=== PATIENT | male | born 1990 ===

== ENCOUNTER 2017-06-25 23:24 | Emergency (ER) | payer MEDICAID ==
[~2017-06-25] VITALS: Ht 175.3 cm; Wt 77.1 kg
[2017-06-25 23:30] VITALS: BP 114/74
--- NOTE | 2017-06-25 23:35 | Emergency Room Report ---
History of Present Illness General Chief Complaint: Behavioral Complaint Source: Patient Present Illness HPI Is a 26-year-old male with a psych history. He has been a psychiatric hospital about a month ago. He presents with chief complaint of suicidal and paranoia. Denies any drug use. He told someone on the street that he is suicidal and feels somewhat is out to get him. That person call 911. Now he denies suicidal thoughts or homicidal thought. examining officer place him on a 5150 hold. Patient denies any drug use. Said he was drinking tonight. Allergies: Coded Allergies: No Known Allergies (Unverified , 06/25/17) Patient History Past Medical History: see triage record, old chart reviewed, bipolar Past Surgical History: other Family History: none Social History: ETOH Immunizations: other Reviewed Nursing Documentation: PMH: Agreed, PSxH: Agreed Review of Systems ENT: Denies: sore throat Cardiovascular: Denies: chest pain, palpitations Gastrointestinal/Abdominal: Denies: nausea, vomiting, diarrhea Musculoskeletal: Denies: back problems Skin: Denies: rash Psychiatric: Reports: prior history, suicidal/homicidal ideations Neurological: Denies: MORTON, seizures All Other Systems: negative except mentioned in HPI Physical Exam Vital Signs Date Time Temp Pulse Resp B/P (MAP) Pulse Ox O2 Delivery O2 Flow Rate FiO2 06/25/17 23:13 77 16 110/74 vitals normal Sp02 EP Interpretation: reviewed, normal General Appearance: alert/responsive, no apparent distress, non-toxic Head: normocephalic, atraumatic Eyes: PERRL, EOMI ENT: oropharynx normal Neck: supple/symm/no masses Respiratory: effort normal, no rhonchi, no wheezing Cardiovascular: no murmur, gallop, rub Gastrointestinal: non-tender, no mass, non-distended, no rebound/guarding, normal bowel sounds Musculoskeletal: gait & station normal Neurologic: oriented x3, sensory intact, motor strength/tone normal Skin: no rash, normal palpation Medical Decision Making Diagnostic Impression: Primary Impression: Suicidal ideations Additional Impressions: Substance abuse Psychosis Qualified Codes: F29 - Unspecified psychosis not due to a substance or known physiological condition ER Course Patient presents with paranoia and psychosis with suicidal thoughts. Initially he denies any drug abuse but later admits to taking Ativan for sleep and also methamphetamine but nothing recently. He keep asking for Ativan here. I politely declined. he is on a 5150. He is medically clear for psychiatric evaluation and transfer. Lab Results Impression labs unremarkable Last Vital Signs Date Time Temp Pulse Resp B/P (MAP) Pulse Ox O2 Delivery O2 Flow Rate FiO2 06/25/17 23:13 77 16 110/74 Status: improved Disposition: XFER TO PSYCH HOSP/UNIT Condition: Stable ROSALINDA PAT M.D. Jun 25, 2017 23:35
[2017-06-26 00:26] LABS: BASOPHILS % (AUTO) 0.9 % (0.0-2.0); EOSINOPHILS % (AUTO) 2.9 % (0.0-3.0); LYMPHOCYTES % (AUTO) 18.1 % (20.0-45.0); MEAN CORPUSCULAR HEMOGLOBIN 30.9 PG (27.0-31.0); MEAN CORPUSCULAR HGB CONC 35.9 G/DL (32.0-36.0); MEAN CORPUSCULAR VOLUME 86 FL (80-99); MEAN PLATELET VOLUME 7.7 FL (6.5-10.1); MONOCYTES % (AUTO) 6.4 % (1.0-10.0); NEUTROPHILS % (AUTO) 71.8 % (45.0-75.0); PLATELET COUNT 312 K/UL (150-450); RED BLOOD COUNT 4.71 M/UL (4.70-6.10); RED CELL DISTRIBUTION WIDTH 10.6 % (11.6-14.8); WHITE BLOOD COUNT 12.8 K/UL (4.8-10.8)
[2017-06-26 00:40] LABS: ANION GAP 8 mmol/L (5-15); CALCIUM 8.7 MG/DL (8.5-10.1); CARBON DIOXIDE 27 MMOL/L (21-32); CHLORIDE 107 MMOL/L (98-107); CREATININE 1.2 MG/DL (0.55-1.30); GLOMERULAR FILTRATION RATE > 60 mL/min (>60); POTASSIUM 3.8 MMOL/L (3.5-5.1); SODIUM 142 MMOL/L (136-145)
[2017-06-26 00:44] LABS: ALANINE AMINOTRANSFERASE 22 U/L (12-78); ALBUMIN/GLOBULIN RATIO 1.1 (1.0-2.7); ASPARTATE AMINO TRANSFERASE 25 U/L (15-37); TOTAL PROTEIN 7.3 G/DL (6.4-8.2)
[2017-06-26 00:46] LABS: ACETAMINOPHEN < 2 MCG/ML (10-30)
[2017-06-26 00:47] LABS: ALCOHOL < 3 mg/dL
[2017-06-26 01:30] VITALS: BP 112/67
[2017-06-26] MEDS ORDERED: DiphenhydrAMINE 50mg/ml Inj IVP ONE (03:15)
[2017-06-26 03:30] VITALS: BP 116/71
[2017-06-26 05:30] VITALS: BP 112/68
[2017-06-26] MEDS ORDERED: Haloperidol Decanoate 50mg Inj IM ONE (14:15)
[2017-06-26 14:26] LABS: APPEARANCE,URINE CLOUDY; KETONES,URINE NEGATIVE (NEGATIVE); LEUKOCYTE ESTERASE ,URINE 1+ (NEGATIVE); NITRITE,URINE NEGATIVE (NEGATIVE); PH,URINE 7 (4.5-8.0); PROTEIN,URINE NEGATIVE (NEGATIVE); UROBILINOGEN,URINE 1 MG/DL (0.0-1.0)
[2017-06-26 14:33] LABS: AMORPHOUS SEDIMENT,UR MODERATE /LPF; BACTERIA,URINE FEW /HPF; RBC,URINE 0-2 /HPF (0 - 0); SQUAMOUS EPITHELIAL CELL,UR FEW /LPF (NONE/OCC); WBC,URINE 0-2 /HPF (0 - 0)
[2017-06-26 15:39] VITALS: BP 120/70
[2017-06-26] MEDS ORDERED: NKM (16:28)
[2017-06-26 17:30] VITALS: BP 120/70
--- NOTE | 2017-06-27 23:51 | Consultation ---
History of Present Illness General Chief Complaint: Behavioral Complaint Present Illness HPI 26-year-old male with a psych history. He has been a psychiatric hospital about a month ago. the pt remained delusional and aggressive. the pt is illogical and unable to make decisions Allergies: Coded Allergies: No Known Allergies (Unverified , 06/25/17) Medication History Scheduled No Known Medications* (NKM - No Known Medications*), 0 ., (Reported) Patient History History Provided By: Patient, Medical Record, PMD Healthcare decision maker Resuscitation status Advanced Directive on File Review of Systems Psychiatric: Reports: prior hx, anxiety, depressed feelings, emotional problems Physical Exam General Appearance: WD/WN, no apparent distress, alert, agitated Height (Feet): 5 Height (Inches): 9.00 Weight (Pounds): 170 Assessment/Plan Status: not improved, unchanged Assessment/Plan bipolar d/o with psychotic fx 5150 transfer to psych haldol dec 100mg Rodrick Alcocer M.D. Jun 27, 2017 23:51
== END 2017-06-26 17:30 ==
LOC: EDBD 23:24 → EMR 23:55
DX: F29 Unspecified psychosis not due to a substance or known physiological condition (principal); R45.851 Suicidal ideations
CPT/HCPCS: 36415; 80053; 80307; 80329; 81003; 85025; 99285; J1631